=== PATIENT | female | born 1990 | race Caucasian/White ===

== ENCOUNTER 2016-12-02 19:36 | Emergency (ER) | payer OTHER ==
[~2016-12-02 19:36] MED LIST: AMOXIL500 MG PO; FLUCONAZOLE100 MG PO; MEDROXYPROG150 MG/ML IM; MELOXICAM15 MG PO; MIRALAX17 G1 PO; PERCOCET 325 MG1 TA2 PO; TYLENOL #31 TAB PO; ULTRAM50 M1 PO; XANAX0.5 MG PO; ZOFRAN 4 MG TABL4 MG PO
[2016-12-02] MEDS ORDERED: PANTOPRAZOLE SO40 M1 PO (19:56)
[2016-12-02] MEDS ORDERED: DEXTROAMP-AMPHE10 MG PO (19:57)
[2016-12-02] MEDS ORDERED: VENLAFAXINE HC150 MG PO (19:57)
[2016-12-02] MEDS ORDERED: GABAPENTIN100 M2 PO (19:57)
[2016-12-02 20:13] LABS: ABSOLUTE BASOPHIL COUNT 0 /CUMM (0.0-0.2); ABSOLUTE EOSINOPHIL COUNT 0.1 /CUMM (0.0-0.7); ABSOLUTE GRANULOCYTE CT 5.7 /CUMM (1.4-6.5); ABSOLUTE LYMPH COUNT 2.1 /CUMM (1.2-3.4); ABSOLUTE MONOCYTE COUNT 0.4 /CUMM (0.10-0.60); BASOPHIL % 0.2 % (0.0-2.0); EOSINOPHIL % 0.7 % (0-5); HEMATOCRIT 41.7 % (37-47); MEAN CORPUSCULAR HGB 27.6 PG (27.0-31.0); MEAN CORPUSCULAR HGB CONC 33.3 G/DL (33.0-37.0); MEAN CORPUSCULAR VOLUME 82.8 FL (81.0-99.0); MEAN PLATELET VOLUME 6.9 FL (7.4-10.4); PLATELET COUNT 314 /CUMM (130-400); RBC DISTRIBUTION WIDTH 12.7 % (11.5-14.5); RED BLOOD CELL CT 5.04 /CUMM (4.20-5.40); WHITE BLOOD CELL COUNT 8.3 /CUMM (4.8-10.8)
--- NOTE | 2016-12-02 20:31 | ED AMS/SEIZURE/WEAK/DIZZY ---
History of Present Illness General Chief Complaint: Dizziness Stated Complaint: DIZZINESS, LIGHTHEADED Source: patient Exam Limitations: no limitations Vital Signs & Intake/Output Vital Signs & Intake/Output Vital Signs Date Time Temp Pulse Resp B/P Pulse O2 O2 Flow FiO2 Ox Delivery Rate 12/02 2122 97.1 99 20 123/61 97 Room Air 12/02 2112 Room Air 12/02 1954 98.1 118 22 131/89 97 Room Air Allergies Coded Allergies: Sulfa (Sulfonamide Antibiotics) (UNKNOWN PER PT SALMA TOLD BY MOTHER 03/03/16) Reconcile Medications Alprazolam (Xanax) 0.5 MG TAB 1 TAB PO PRN ANXIETY (Reported) Dextroamphetamine/Amphetamine (Dextroamp-Amphetamin 10 MG Tab) 10 MG TABLET 1 TAB PO DAILY ADHD (Reported) Gabapentin 100 MG CAPSULE 1 CAP PO TID CP (Reported) Meclizine HCl 25 MG TABLET 1 TAB PO Q8 PRN dizziness Medroxyprogesterone Acetate 150 MG/ML KARINE 1 ML IM Q3M CONTROL (Reported ) Methylprednisolone. (Medrol) 4 MG TAB.DS.PK 1 DP PO AD migraine/vertigo Metoclopramide HCl (Reglan) 10 MG TABLET 1 TAB PO Q6 PRN nausea Pantoprazole Sodium 40 MG TABLET.DR 1 TAB PO DAILY GERD (Reported) Venlafaxine HCl (Venlafaxine HCl ER) 150 MG CAP.ER.24H 1 CAP PO DAILY ANXIETY (Reported) Triage Note: PER PT FEELING DIZZY TODAY, LIGHTHEADED ALL DAY, FEELS OFF DENIES RECENT COLD OR FEVER ON DEPO DOES NOT GET PERIOD. FEELS LIKE GOING TO FALL OVER WHEN STANDING DIZZY ALL THE TIME NOT WORSE WITH POSITION CHANGE Triage Nurses Notes Reviewed? yes : No Patient currently breastfeeds: No HPI: Patient is a 26-year-old female presents complaining of dizziness and room spinning sensation. Onset earlier today. Patient reports that she has a room spinning and off balance sensation. Symptoms are moderate at rest, worsened with head movements and change in position. Patient denies blurred vision, nasal congestion, tinnitus, fevers, chills, chest pain. Patient also reports that she feels a migraine developing since arrival in the emergency department. Diffuse headache currently moderate with mild photophobia and mild nausea. Patient has a history of migraines, reports this feels similar. (HEILVASQUEZ WHITEHEAD) Past History Travel History Traveled to [place] past 21 day No Medical History Any Pertinent Medical History? 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 No (VASQUEZ SMITH) Review of Systems Review of Systems Constitutional: Denies: chills, fever. EENTM: Denies: ear pain, hearing changes, nasal congestion. Respiratory: Denies: cough, short of breath. Cardiovascular: Denies: chest pain, palpitations, syncope. GI: Reports: nausea. Denies: abdominal pain, vomiting. Genitourinary: Reports: no symptoms. Musculoskeletal: Denies: back pain, neck pain. Skin: Reports: no symptoms. Neurological/Psychological: Reports: headache. Denies: confusion, numbness. Hematologic/Endocrine: Denies: bruising, bleeding. Immunologic/Allergic: Denies: splenectomy. (VASQUEZ SMITH) Physical Exam Physical Exam General Appearance: well developed/nourished, alert, awake Head: atraumatic, normal appearance Eyes: Bilateral: normal appearance, PERRL, EOMI, other (dizziness increases with EOM). Ears, Nose, Throat: normal pharynx, normal ENT inspection, hearing grossly normal Neck: normal inspection, supple, full range of motion, no appreciable carotid bruit Respiratory: normal breath sounds, chest non-tender, no respiratory distress, lungs clear Cardiovascular: mild tachycardia, regular rhythm, no appreciable murmur Back: normal inspection, normal range of motion Extremities: normal range of motion Neurologic/Psych: no motor/sensory deficits, awake, alert, oriented x 3, normal gait, normal mood/affect Skin: intact, normal color, warm/dry Lymphatic: no anterior cervical quentin Core Measures ACS in differential dx? No CVA/TIA Diagnosis: No Severe Sepsis Present: No Septic Shock Present: No (VASQUEZ SMITH) Progress Differential Diagnosis: arrythmia, benign positional vertigo, CVA/stroke, electrolyte imbalance, intracranial Hem., intracranial mass/tumor, labrynthitis, meningitis, Meniere's disease, migraine LOVE, seizure disorder, subarachnoid Hem., vertebrobasilar insuff Plan of Care: Orders Procedure Date/time Status HUMAN BETA HCG SCREEN 12/02 2005 Complete COMPREHENSIVE METABOLIC PANEL 12/02 2005 Complete CBC WITHOUT DIFFERENTIAL 12/02 2005 Complete Laboratory Tests 12/02/162009: Anion Gap 9, Estimated GFR > 60, BUN/Creatinine Ratio 11.4, Glucose 103 H, Calcium 9.7, Total Bilirubin 0.3, AST 21, ALT 25, Alkaline Phosphatase 72, Total Protein 7.1, Albumin 4.3, Globulin 2.8, Albumin/Globulin Ratio 1.5, Total Beta HCG NEGATIVE, CBC w Diff NO MAN DIFF REQ, RBC 5.04, MCV 82.8, MCH 27.6, RDW 12.7 , MPV 6.9 L, Gran % 69.0, Lymphocytes % 25.6, Monocytes % 4.5, Eosinophils % 0.7, Basophils % 0.2, Absolute Granulocytes 5.7, Absolute Lymphocytes 2.1, Absolute Monocytes 0.4, Absolute Eosinophils 0.1, Absolute Basophils 0, PUBS MCHC 33.3 2114: Moderate improvement in dizziness after Reglan, meclizine, Toradol. Continues with mild to moderate headache. No acute neurologic abnormalities. Neuro imaging deferred. Patient appears stable for discharge. (VASQUEZ SMITH) Initial ED EKG: none (VASQUEZ SMITH) Departure Departure Time of Disposition: 2114 Disposition: HOME OR SELF CARE Condition: Stable Clinical Impression Primary Impression: Vertigo Referrals: SOFIA NUNEZ MD (PCP/Family) Additional Instructions: Drink plenty fluids and rest. Follow-up with your primary care doctor this week for further evaluation. Return to the emergency department numbness, weakness, or worsening of symptoms. Departure Forms: Customer Survey General Discharge Information Prescriptions: Current Visit Scripts Meclizine HCl 1 TAB PO Q8 PRN dizziness #12 TAB Metoclopramide HCl (Reglan) 1 TAB PO Q6 PRN nausea #12 TAB Methylprednisolone. (Medrol) 1 DP PO AD #1 DP (VASQUEZ SMITH) PA/FISHER CLAM Co-Sign Statement Statement: ED Attending supervision documentation- [] I saw and evaluated the patient. I have also reviewed all the pertinent lab results and diagnostic results. I agree with the findings and the plan of care as documented in the PA's/FISHER CLAM's documentation. [X] I have reviewed the ED Record and agree with the PA's/FISHER CLAM's documentation. [] Additions or exceptions (if any) to the PAs/FISHER CLAM's note and plan are summarized below: [] (CELI FLORES,ISHMAEL Christine)
[2016-12-02] MEDS ORDERED: MEDROL4 M2 PO (21:16)
[2016-12-02] MEDS ORDERED: REGLAN10 M1 PO (21:16)
[2016-12-02] MEDS ORDERED: MECLIZINE HCL25 MG PO (21:16)
[2016-12-02 21:23] VITALS: BP 123/61
== END 2016-12-02 21:31 ==
LOC: ERH 19:36
PROVIDERS: Physician Assistant
DX: R42 Dizziness and giddiness (principal)
CPT/HCPCS: 96374; 96375; J1885; J2765

== ENCOUNTER 2016-12-18 15:07 | Emergency (ER) | payer OTHER ==
[~2016-12-18] VITALS: Ht 167.6 cm; Wt 78.0 kg
[~2016-12-18 15:07] MED LIST changes: +DEXTROAMP-AMPHE10 MG PO; +GABAPENTIN100 M2 PO; +MECLIZINE HCL25 MG PO; +MEDROL4 M2 PO; +PANTOPRAZOLE SO40 M1 PO; +REGLAN10 M1 PO; +VENLAFAXINE HC150 MG PO
[2016-12-18 16:13] LABS: ABSOLUTE BASOPHIL COUNT 0 /CUMM (0.0-0.2); ABSOLUTE EOSINOPHIL COUNT 0.1 /CUMM (0.0-0.7); ABSOLUTE GRANULOCYTE CT 4.9 /CUMM (1.4-6.5); ABSOLUTE LYMPH COUNT 2.5 /CUMM (1.2-3.4); ABSOLUTE MONOCYTE COUNT 0.5 /CUMM (0.10-0.60); BASOPHIL % 0.5 % (0.0-2.0); EOSINOPHIL % 1.8 % (0-5); GRANULOCYTE % 60.6 % (42.2-75.2); HEMATOCRIT 40.8 % (37-47); MEAN CORPUSCULAR HGB 27.8 PG (27.0-31.0); MEAN CORPUSCULAR HGB CONC 33.5 G/DL (33.0-37.0); MEAN CORPUSCULAR VOLUME 82.8 FL (81.0-99.0); MEAN PLATELET VOLUME 6.9 FL (7.4-10.4); PLATELET COUNT 329 /CUMM (130-400); RED BLOOD CELL CT 4.93 /CUMM (4.20-5.40); WHITE BLOOD CELL COUNT 8.1 /CUMM (4.8-10.8)
--- NOTE | 2016-12-18 16:58 | ED AMS/SEIZURE/WEAK/DIZZY ---
History of Present Illness General Chief Complaint: General Adult Stated Complaint: HIGH BP/HR Source: patient, old records Exam Limitations: no limitations Vital Signs & Intake/Output Vital Signs & Intake/Output Vital Signs Date Time Temp Pulse Resp B/P Pulse O2 O2 Flow FiO2 Ox Delivery Rate 12/18 1730 89 18 136/90 99 Room Air 12/18 1509 97.8 124 18 142/90 98 Room Air Allergies Coded Allergies: Sulfa (Sulfonamide Antibiotics) (UNKNOWN PER PT SALMA TOLD BY MOTHER 03/03/16) Reconcile Medications Alprazolam (Xanax) 0.5 MG TAB 1 TAB PO PRN ANXIETY (Reported) Butalb/Acetaminophen/Caffeine (Fioricet 50-300-40 MG Capsule) 50 MG-300 MG-40 MG CAPSULE 1 TAB PO Q6HR PRN HEADACHE Dextroamphetamine/Amphetamine (Dextroamp-Amphetamin 10 MG Tab) 10 MG TABLET 1 TAB PO DAILY ADHD (Reported) Gabapentin 100 MG CAPSULE 1 CAP PO TID CP (Reported) Meclizine HCl 25 MG TABLET 1 TAB PO Q8 PRN dizziness Medroxyprogesterone Acetate 150 MG/ML KARINE 1 ML IM Q3M CONTROL (Reported ) Methylprednisolone. (Medrol) 4 MG TAB.DS.PK 1 DP PO AD migraine/vertigo Metoclopramide HCl (Reglan) 10 MG TABLET 1 TAB PO Q6 PRN nausea Ondansetron (Zofran Odt) 4 MG TAB.RAPDIS 1 TAB SL TID NAUSEA Pantoprazole Sodium 40 MG TABLET.DR 1 TAB PO DAILY GERD (Reported) Venlafaxine HCl (Venlafaxine HCl ER) 150 MG CAP.ER.24H 1 CAP PO DAILY ANXIETY (Reported) Triage Note: PT COMPLAINS OF NOT FEELING WELL FOR THE PAST COUPLE OF WEEKS, HEADACHE , LIGHT HEADED AND DIZZINESS . Triage Nurses Notes Reviewed? yes Onset: Gradual Duration: week(s):, intermittent Timing: recent history Injury Environment: home Severity: mild, moderate Severity Numbers: 5 No Modifying Factors: none Associated Symptoms: DENIES : No Patient currently breastfeeds: No HPI: This is a 26-year-old female who presents emergency room complaining of a three- week history of a generalized headache and intermittent dizziness lightheadedness. The patient was seen here one week ago for similar symptoms diagnosed with an ear infection was sent home with meclizine Medrol Dosepak and antibiotics which she completed. The patient states she's also been seen at 2 urgent cares regarding her symptoms however they persist. 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 They checked her blood pressure at that time which was noted to be high. She is not sought care again until today. She is complaining now of generalized headache nausea. She describes the headache as a pressure sensation however denies vision changes. She reports to intermittent substernal nonradiating chest pain and aching in nature associated with shortness of breath however the patient was noted to be smoking outside earlier. She denies any recent immobility or recent travel (SAMUEL BARRAZA) Past History Travel History Traveled to [place] past 21 day No Medical History Any Pertinent Medical History? 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 No (SAMUEL BARRAZA) Review of Systems Review of Systems Constitutional: Reports: see HPI. All Other Systems: Reviewed and Negative Comments Review of systems: See HPI, All other systems negative. Constitutional, no chills no fever, no malaise no weight loss HEENT:no vision changes no sore throat no congestion Cardiovascular: No chest pain , no palpitation Skin, no rashes, no change in skin Respiratory: No dyspnea no cough no sputum GI: nausea vomiting, no diarrhea, no bloating/constipation : No dysuria No hematuria, no frequency, Muscle skeletal: No joint pain, no joint swelling, no back pain, no neck pain, Neurologic: No numbness no confusion, headache Psych: No stress Heme/endocrine: No bruising no bleeding Immunology: No lymphadenopathy (SAMUEL BARRAZA) Physical Exam Physical Exam General Appearance: well developed/nourished, no apparent distress, alert, awake Comments: Well-developed well-nourished person in no acute distress HEENT: Normal EENT exam; PERRL, EOMI,HEAD is atraumatic. moist mucous membranes. No papilledema Neck: Supple, no lymphadenopathy, normal range of motion Back: Nontender, no CVA tenderness. Full range of motion Cardiovascular: Regular rate and rhythms no murmurs rubs or gallops, normal JVP Respiratory: Chest nontender.There were no bony deformities, no asymmetry. No respiratory distress. Patient speaking in full complete sentences. Breath sounds clear to auscultation bilaterally: NO W/R/R Abdomen: Soft, nontender nondistended, no appreciable organomegaly. Normal bowel sounds. No rebound/guarding, Extremity: No edema, full range of motion of extremities Neuro: Alert oriented x3, motor sensory normal, There were no obvious focal neurologic abnormalities. Skin: No appreciable rash on exposed skin, skin is warm and dry. Psych: Mood and affect is normal, memory and judgment is normal. Core Measures ACS in differential dx? Yes CVA/TIA Diagnosis: No Severe Sepsis Present: No Septic Shock Present: No (JESSI DENNIS,SAMUEL) Progress Differential Diagnosis: arrythmia, anemia, benign positional vertigo, dehydration, drug intoxication, electrolyte imbalance, GI bleed, hypoglycemia, labrynthitis, multiple sclerosis, UTI/pyelo Plan of Care: Orders Procedure Date/time Status THYROID STIMULATING HORMONE 12/18 1558 Complete TROPONIN LEVEL 12/18 1558 Complete HUMAN BETA HCG SCREEN 12/18 1558 Complete FREE T4 12/18 1558 Complete D-DIMER 12/18 1558 Complete COMPREHENSIVE METABOLIC PANEL 12/18 1558 Complete CBC WITHOUT DIFFERENTIAL 12/18 1558 Complete EKG 12/18 1544 Active Laboratory Tests 12/18/16 1605: Anion Gap 9, Estimated GFR > 60, BUN/Creatinine Ratio 11.4, Glucose 88, Calcium 9.4, Total Bilirubin 0.3, AST 18, ALT 26, Alkaline Phosphatase 64, Troponin I < 0.01, Total Protein 6.8, Albumin 4.1, Globulin 2.7, Albumin/Globulin Ratio 1.5, TSH 1.150, Free T4 0.85, Total Beta HCG NEGATIVE, D-Dimer < 200, CBC w Diff NO MAN DIFF REQ, RBC 4.93, MCV 82.8, MCH 27.8, RDW 14.0, MPV 6.9 L, Gran % 60.6, Lymphocytes % 31.0, Monocytes % 6.1, Eosinophils % 1.8, Basophils % 0.5, Absolute Granulocytes 4.9, Absolute Lymphocytes 2.5, Absolute Monocytes 0.5, Absolute Eosinophils 0.1, Absolute Basophils 0, PUBS MCHC 33.5 Labs ordered from triage patient medicated with Tylenol Zofran by mouth I discussed with her apparently all of her lab results. Need for close follow-up with paraprofessional education assistant Dr. Spicer for Holter monitor as well as her primary care physician who she is scheduled to see on Friday prescription for Fioricet and Zofran provided the patient has no neurologic deficits her exam is unremarkable the patient was noted to be outside smoking in no apparent distress while in the waiting room by nursing I discussed with her that I do not believe she requires further workup as her lungs are clear to auscultation there is no papilledema, there is been no recent trauma I discussed with her that I believe imaging of her head is warranted at this time the patient is in agreement with plan she will continue to check her blood pressures at home (SAMUEL BARRAZA) Initial ED EKG: STACH AT 100, NO ACUTE ST SEG CHANGES, NORMAL AXIS (SAMUEL BARRAZA) Departure Departure Time of Disposition: 1741 Disposition: HOME OR SELF CARE Condition: Stable Clinical Impression Primary Impression: Migraine Referrals: ENRIQUE FLORES,SOFIA (PCP/Family) ANAND FLORES,GARRY Sanchez Additional Instructions: FIORICET FOR HEADACHES, ZOFRAN FOR NAUSEA. LIMIT TV CELL PHONE COMPUTER USAGE. CONTINUE TO CHECK YOUR BLOOD PRESSURES AT HOME AND RIGHT THEM DOWN. FOLLOW UP WITH SIGNAL MAINTAINER DR SPICER WELL YOUR PMD DR NUNEZ.RETURN AT ANYTIME SOONER WITH ANY CONCERNS. THESE PRESCRIPTIONS WERE SENT TO [facility]. Departure Forms: Customer Survey General Discharge Information Prescriptions: Current Visit Scripts Butalb/Acetaminophen/Caffeine (Fioricet 50-300-40 MG Capsule) 1 TAB PO Q6HR PRN HEADACHE #12 TAB Ondansetron (Zofran Odt) 1 TAB SL TID #10 TAB (SAMUEL BARRAZA) PA/SENIOR NET WEB DEVELOPER Co-Sign Statement Statement: ED Attending supervision documentation- [] I saw and evaluated the patient. I have also reviewed all the pertinent lab results and diagnostic results. I agree with the findings and the plan of care as documented in the PA's/SENIOR NET WEB DEVELOPER's documentation. [X] I have reviewed the ED Record and agree with the PA's/SENIOR NET WEB DEVELOPER's documentation. [] Additions or exceptions (if any) to the PAs/SENIOR NET WEB DEVELOPER's note and plan are summarized below: [] (SANDY FLORES,MARCIA) ED Attending Observation Initial Observation Note: I have seen and personally examined NICOLETTE FENG on 12/18/16 at 1657. I agree with the current emergency department documentation. The disposition (admission or discharge) is uncertain at this time, she needs a period of observation for the following reason(s): The ED Nurse caring for this patient has been personally informed as to what the patient is being observed for. (JESSI DENNIS,SAMUEL)
[2016-12-18 17:30] VITALS: BP 136/90
[2016-12-18] MEDS ORDERED: FIORICET 50-301 EACH PO (17:44)
[2016-12-18] MEDS ORDERED: ZOFRAN ODT4 M1 SL (17:44)
== END 2016-12-18 18:00 ==
LOC: ERH 15:07
PROVIDERS: Emergency Medicine
DX: G43.909 Migraine, unspecified, not intractable, without status migrainosus (principal)
CPT/HCPCS: 93005; 93010; J3101

== ENCOUNTER 2017-06-15 03:28 | Emergency (ER) | payer OTHER ==
[~2017-06-15] VITALS: Ht 167.6 cm; Wt 76.2 kg
[~2017-06-15 03:28] MED LIST changes: +FIORICET 50-301 EACH PO; +ZOFRAN ODT4 M1 SL
[2017-06-15 03:35] VITALS: BP 127/79
--- NOTE | 2017-06-15 03:35 | ED GENERAL ADULT ---
History of Present Illness General Chief Complaint: General Adult Stated Complaint: "PER PT SORE THROAT,ASPIRATE WHEN I LAY,COUGHING" Source: patient Exam Limitations: no limitations Vital Signs & Intake/Output Vital Signs & Intake/Output Vital Signs Date Time Temp Pulse Resp B/P B/P Pulse O2 O2 Flow FiO2 Mean Ox Delivery Rate 06/15 0417 96 Room Air 06/15 0335 96.7 103 18 127/79 96 Room Air Allergies Coded Allergies: Sulfa (Sulfonamide Antibiotics) (UNKNOWN PER PT SALMA TOLD BY MOTHER 03/03/16) Reconcile Medications Albuterol Sulfate (Proventil Hfa) 90 MCG HFA.AER.AD 2 PUF INH Q4 PRN ASTHMA Alprazolam (Xanax) 0.5 MG TAB 1 TAB PO PRN ANXIETY (Reported) Butalb/Acetaminophen/Caffeine (Fioricet 50-300-40 MG Capsule) 50 MG-300 MG-40 MG CAPSULE 1 TAB PO Q6HR PRN HEADACHE Dextroamphetamine/Amphetamine (Dextroamp-Amphetamin 10 MG Tab) 10 MG TABLET 1 TAB PO DAILY ADHD (Reported) Gabapentin 100 MG CAPSULE 1 CAP PO TID CP (Reported) Hydroxyzine Pamoate (Vistaril) 25 MG CAPSULE 1 CAP PO BID PRN NASAL CONGESTION Meclizine HCl 25 MG TABLET 1 TAB PO Q8 PRN dizziness Medroxyprogesterone Acetate 150 MG/ML KARINE 1 ML IM Q3M CONTROL (Reported ) Methylprednisolone. (Medrol) 4 MG TAB.DS.PK 1 DP PO AD migraine/vertigo Metoclopramide HCl (Reglan) 10 MG TABLET 1 TAB PO Q6 PRN nausea Ondansetron (Zofran Odt) 4 MG TAB.RAPDIS 1 TAB SL TID NAUSEA Pantoprazole Sodium 40 MG TABLET.DR 1 TAB PO DAILY GERD (Reported) Venlafaxine HCl (Venlafaxine HCl ER) 150 MG CAP.ER.24H 1 CAP PO DAILY ANXIETY (Reported) Triage Nurses Notes Reviewed? yes Onset: Abrupt Duration: day(s): Timing: recent history HPI: 06/15/17 27-year-old female presents to the emergency department for sore throat, nasal congestion, and now difficulty breathing when she lies down. She says that she does have a history of asthma she is also on control. She says she was doing well and had a mild sore throat and nasal congestion, and now it is becoming severe. No chest pain. The onset of the symptoms was abrupt, the duration was several days, the severity was significant as her symptoms required her to come to the emergency department for care. Past History Travel History Traveled to [place] past 21 day No Medical History Any Pertinent Medical History? 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 No Review of Systems Review of Systems Constitutional: Denies: fever. EENTM: Reports: nasal congestion. Respiratory: Reports: see HPI, cough. Cardiovascular: Denies: chest pain. GI: Denies: abdominal pain. Genitourinary: Reports: no symptoms. Musculoskeletal: Reports: no symptoms. Skin: Reports: no symptoms. Neurological/Psychological: Reports: no symptoms. Hematologic/Endocrine: Reports: no symptoms. Immunologic/Allergic: Reports: no symptoms. Physical Exam Physical Exam General Appearance: well developed/nourished, alert, awake, anxious, mild distress Head: atraumatic, normal appearance Eyes: Bilateral: normal appearance, PERRL, EOMI. Ears, Nose, Throat: normal pharynx, normal ENT inspection Neck: normal inspection, supple Respiratory: normal breath sounds, chest non-tender, no respiratory distress Cardiovascular: regular rate/rhythm Peripheral Pulses: 4+ radial (R), 4+ radial (L) Gastrointestinal: non-tender Back: normal range of motion Extremities: normal inspection, normal range of motion, no edema Neurologic/Psych: no motor/sensory deficits, awake, alert, oriented x 3 Skin: intact, normal color, warm/dry Core Measures ACS in differential dx? No CVA/TIA Diagnosis: No Severe Sepsis Present: No Septic Shock Present: No Progress Differential Diagnoses I considered the following diagnoses in my evaluation of the patient: [ Bronchitis, pneumonia, asthma, pulmonary embolism, infectious mono, strep pharyngitis, sinusitis] Plan of Care: Orders Procedure Date/time Status Add-on Test (ER Only) 06/15 8240 Active HUMAN BETA HCG SCREEN 07/30 0400 Complete D-DIMER 06/15 400 Complete THROAT CULTURE W/QUICK STREP 06/15 335 Active MONOSPOT 06/15 335 Complete COMPREHENSIVE METABOLIC PANEL 06/15 335 Complete CBC WITHOUT DIFFERENTIAL 06/15 335 Complete Laboratory Tests 06/15/17399: Anion Gap 10, Estimated GFR > 60, BUN/Creatinine Ratio 12.9, Glucose 83, Calcium 9.8, Total Bilirubin 0.3, AST 15, ALT 29, Alkaline Phosphatase 52, Total Protein 6.5, Albumin 4.4, Globulin 2.1, Albumin/Globulin Ratio 2.1, Total Beta HCG NEGATIVE, D-Dimer High Sensitivty < 200, CBC w Diff NO MAN DIFF REQ, RBC 4.83, MCV 83.4, MCH 27.5, RDW 13.1, MPV 7.3 L, Gran % 44.8, Lymphocytes % 41.8, Monocytes % 9.3, Eosinophils % 3.4, Basophils % 0.7, Absolute Granulocytes 3.5, Absolute Lymphocytes 3.2, Absolute Monocytes 0.7 H, Absolute Eosinophils 0.3, Absolute Basophils 0.1, PUBS MCHC 32.9 L, Infectious [place] Titer NEGATIVE Initial ED EKG: none Departure Departure Disposition: HOME OR SELF CARE Condition: Stable Clinical Impression Primary Impression: Allergic rhinitis Secondary Impressions: Bronchitis Referrals: SOFIA NUNEZ MD (PCP/Family) Departure Forms: Customer Survey General Discharge Information Prescriptions: Current Visit Scripts Albuterol Sulfate (Proventil Hfa) 2 PUF INH Q4 PRN ASTHMA #1 INHAL Hydroxyzine Pamoate (Vistaril) 1 CAP PO BID PRN NASAL CONGESTION #15 CAP Comments I considered bacterial bronchitis or pneumonia. Chest x-ray was negative. No fever. White blood cell count was normal. She is not coughing up any significant sputum. The patient was treated with albuterol and Atarax. She will follow-up with her doctor this week. She declined prednisone, that she's had an adverse reaction to this in the past.FINDINGS: The lungs are well expanded and clear, without evidence of focal airspace consolidation or pneumothorax. Heart size is within the range of normal. There are no pleural effusions. Chest x-ray result below IMPRESSION: No radiographic evidence of an acute cardiopulmonary process. DICTATED BY: RADHA PACKER MD DATE/TIME DICTATED:06/15/17542 SOCIOLOGY RESEARCH ASSISTANT:CECILY DATE/TIME TRANSCRIBED:06/15/17542 CONFIDENTIAL, DO NOT COPY WITHOUT APPROPRIATE AUTHORIZATION. <Electronically signed in Other Vendor System> SIGNED BY: OCHOA FLORES,RADHA 06/15/17 0547 Critical Care Note Critical Care Note Critical Care Time: non-applicable
[2017-06-15 04:26] LABS: ABSOLUTE BASOPHIL COUNT 0.1 /CUMM (0.0-0.2); ABSOLUTE EOSINOPHIL COUNT 0.3 /CUMM (0.0-0.7); ABSOLUTE GRANULOCYTE CT 3.5 /CUMM (1.4-6.5); ABSOLUTE LYMPH COUNT 3.2 /CUMM (1.2-3.4); ABSOLUTE MONOCYTE COUNT 0.7 /CUMM (0.10-0.60); BASOPHIL % 0.7 % (0.0-2.0); EOSINOPHIL % 3.4 % (0-5); GRANULOCYTE % 44.8 % (42.2-75.2); HEMATOCRIT 40.3 % (37-47); MEAN CORPUSCULAR HGB 27.5 PG (27.0-31.0); MEAN CORPUSCULAR HGB CONC 32.9 G/DL (33.0-37.0); MEAN CORPUSCULAR VOLUME 83.4 FL (81.0-99.0); MEAN PLATELET VOLUME 7.3 FL (7.4-10.4); PLATELET COUNT 298 /CUMM (130-400); RBC DISTRIBUTION WIDTH 13.1 % (11.5-14.5); RED BLOOD CELL CT 4.83 /CUMM (4.20-5.40); WHITE BLOOD CELL COUNT 7.7 /CUMM (4.8-10.8)
--- NOTE | 2017-06-15 05:47 | RADIOLOGY REPORT ---
EXAMINATION: XR CHEST CLINICAL INFORMATION: 27-year-old woman with cough. COMPARISON: 09/20/2015 chest radiograph TECHNIQUE: 2 views of the chest were obtained. FINDINGS: The lungs are well expanded and clear, without evidence of focal airspace consolidation or pneumothorax. Heart size is within the range of normal. There are no pleural effusions. IMPRESSION: No radiographic evidence of an acute cardiopulmonary process.
[2017-06-15] MEDS ORDERED: VISTARIL25 M1 PO (05:57)
[2017-06-15] MEDS ORDERED: PROVENTIL HFA6.7 GM INH (05:57)
== END 2017-06-15 06:03 ==
LOC: ERH 03:28
PROVIDERS: Emergency Medicine
DX: J30.9 Allergic rhinitis, unspecified (principal); J40 Bronchitis, not specified as acute or chronic
CPT/HCPCS: 96360; 96361; J2930